=== PATIENT | female | born 1930 | race Caucasian/White ===

== ENCOUNTER 2020-06-26 17:52 | Emergency (ER) | payer MEDICARE, BC ==
[2020-06-26 18:29] LABS: CHLORIDE,CL 90 mmol/L (98-107); SODIUM,NA 125 mmol/L (136-145)
--- NOTE | 2020-06-26 19:50 | EDM.PDOC ---
ED HPI GENERAL MEDICAL PROBLEM - General Chief Complaint: General Stated Complaint: fall, dizziness Time Seen by Provider: 06/26/20 18:00 Source of Information: Reports: Patient - History of Present Illness INITIAL COMMENTS - FREE TEXT/NARRATIVE: Pt states she fell earlier today in the garage States she does not think she lost consciousness but does not recall events after falling Presents to ER with complaints of right shoulder pain, right hip pain and right knee pain Also with mild swelling around right eye Onset: Today, Sudden Location: Reports: Upper Extremity, Right, Lower Extremity, Right Quality: Reports: Ache Context: Reports: Trauma Right Shoulder Pain Score (Numeric/FACES): 6 Right hip Pain Score (Numeric/FACES): 6 - Related Data Allergies Allergy/AdvReac Type Severity Reaction Status Date / Time Penicillins Allergy Rash Verified 06/26/20 18:04 Home Meds: Home Meds Olmesartan/Hydrochlorothiazide [Olmesartan-Hctz 40-12.5 mg Tab] 1 tab PO DAILY 06/26/20 [History] Potassium Chloride 20 meq PO DAILY 06/26/20 [History] Propranolol [Inderal LA] 160 mg PO DAILY 06/26/20 [History] Past Medical History HEENT History: Reports: Impaired Vision Other HEENT History: wears glasses Cardiovascular History: Reports: High Cholesterol, Hypertension Other Musculoskeletal History: chronic knee pain Oncologic (Cancer) History: Reports: Breast - Past Surgical History GI Surgical History: Reports: Appendectomy Oncologic Surgical History: Reports: Lumpectomy Social & Family History - Tobacco Use Tobacco Use Status *Q: Never Tobacco User Second Hand Smoke Exposure: No - Caffeine Use Caffeine Use: Reports: Coffee - Recreational Drug Use Recreational Drug Use: No ED ROS GENERAL - Review of Systems Review Of Systems: See Below Constitutional: Reports: No Symptoms HEENT: Reports: Other (Black eye) Respiratory: Reports: No Symptoms Cardiovascular: Reports: No Symptoms GI/Abdominal: Reports: No Symptoms Musculoskeletal: Reports: Shoulder Pain, Leg Pain, Joint Pain ED EXAM, GENERAL - Physical Exam Exam: See Below Exam Limited By: No Limitations General Appearance: Alert, WD/WN, Mild Distress Eye Exam: Bilateral Eye: EOMI, PERRL Ear Exam: Bilateral Ear: TM normal Nose: Normal Inspection Throat/Mouth: Normal Oropharynx Head: Other (Right eye with ecchymosis lateral to eye) Neck: Supple, Non-Tender Respiratory/Chest: Lungs Clear Cardiovascular: Regular Rate, Rhythm GI/Abdominal: Soft, Non-Tender Extremities: Other (Right knee and right shoulder tender with palaption or movement No deformity No ecchymosis) Neurological: Alert, Oriented (hip moderately tender No deformity No ecchymosis), Normal Cognition, No Motor/Sensory Deficits Psychiatric: Normal Affect, Normal Mood Course - Vital Signs Last Recorded V/S: Last Vital Signs Temp 98.1 F 06/26/20 19:03 Pulse 63 06/26/20 19:03 Resp 16 06/26/20 19:03 BP 145/57 H 06/26/20 19:03 Pulse Ox 97 06/26/20 19:03 - Orders/Labs/Meds Orders: Active Orders 24 hr Category Date Time Status Head wo Cont [CT] Stat Exams 06/26/20 18:01 Taken Hip Min 2V or 3V w Pelvis Rt [CR] Stat Exams 06/26/20 18:22 Taken Knee 3V Rt [CR] Stat Exams 06/26/20 18:12 Taken Shoulder Comp Rt [CR] Stat Exams 06/26/20 18:12 Taken Labs: Laboratory Tests 06/26/20 06/26/20 Range/Units 18:05 18:05 WBC 8.3 (4.0-10.2) K/uL RBC 4.58 (3.77-5.09) M/uL Hgb 13.6 (11.7-15.5) g/dL Hct 38.8 (34.0-46.0) % MCV 84.7 (84.0-98.0) fL MCH 29.7 (28.2-33.3) pg MCHC 35.1 (31.7-36.0) g/dL RDW 12.9 (11.2-14.1) % Plt Count 228 (150-350) K/uL Neut % (Auto) 80.5 H (45.0-80.0) % Lymph % (Auto) 8.0 L (10.0-50.0) % Butts % (Auto) 6.4 (2.0-14.0) % Eos % (Auto) 3.9 (0.0-5.0) % Baso % (Auto) 1.2 (0.0-2.0) % Neut # (Auto) 6.64 (1.40-7.00) K/uL Lymph # (Auto) 0.66 (0.50-3.50) K/uL Butts # (Auto) 0.53 (0.00-1.00) K/uL Eos # (Auto) 0.32 (0.00-0.50) K/uL Baso # (Auto) 0.10 (0.00-0.20) K/uL Sodium 125 L (136-145) mmol/L Potassium 3.2 L (3.5-5.1) mmol/L Chloride 90 L (98-107) mmol/L Carbon Dioxide 27.0 (21.0-32.0) mmol/L BUN 13 (7-18) mg/dL Creatinine 0.76 (0.51-1.17) mg/dL Est Cr Clr Drug Dosing 36.05 mL/min Estimated GFR (MDRD) > 60 mL/min Glucose 132 H (74-106) mg/dL Calcium 8.9 (8.5-10.1) mg/dL - Re-Assessments/Exams Free Text/Narrative Re-Assessment/Exam: 06/26/20 19:49 CT: Negative per radiologist Xrays: No obvious fracture Departure - Departure Time of Disposition: 20:00 Disposition: Home, Self-Care 01 Clinical Impression: Multiple contusions - Discharge Information *PRESCRIPTION DRUG MONITORING PROGRAM REVIEWED*: Not Applicable *COPY OF PRESCRIPTION DRUG MONITORING REPORT IN PATIENT MAGGY: Not Applicable Instructions: Contusion, [id number] Referrals: Cuca Salas, PRECISION MACHINE OPERATOR [Primary Care Provider] - Additional Instructions: Rx Tramadol 50 mg One pill every six hours for pain as needed Ice as needed Follow up in clinic Sepsis Event Note (ED) - Evaluation Sepsis Screening Result: No Definite Risk - Focused Exam Vital Signs: Vital Signs Temp Pulse Resp BP Pulse Ox 06/26/20 19:03 98.1 F 63 16 145/57 H 97 06/26/20 18:00 97.9 F 64 18 142/64 H 97 06/26/20 17:52 97.6 F 65 18 156/70 H 99 - My Orders Last 24 Hours: My Active Orders 06/26/20 18:01 Head wo Cont [CT] Stat 06/26/20 18:12 Knee 3V Rt [CR] Stat Shoulder Comp Rt [CR] Stat 06/26/20 18:22 Hip Min 2V or 3V w Pelvis Rt [CR] Stat - Assessment/Plan Last 24 Hours: My Active Orders 06/26/20 18:01 Head wo Cont [CT] Stat 06/26/20 18:12 Knee 3V Rt [CR] Stat Shoulder Comp Rt [CR] Stat 06/26/20 18:22 Hip Min 2V or 3V w Pelvis Rt [CR] Stat
== END 2020-06-26 20:20 | disposition home or self-care (01) ==
LOC: LL.ED 17:52
DX: S00.83XA Contusion of other part of head, initial encounter (principal); M25.511 Pain in right shoulder; M25.551 Pain in right hip; M25.561 Pain in right knee; I10 Essential (primary) hypertension; Z88.0 Allergy status to penicillin; Z79.899 Other long term (current) drug therapy; W18.30XA Fall on same level, unspecified, initial encounter; Y92.59 Other trade areas as the place of occurrence of the external cause
CPT/HCPCS: 36415; 70450; 73030-RT; 73562-RT; 80048; 85025; 99283; 99284-25